=== PATIENT | female | born 1975 | race Caucasian/White ===

== ENCOUNTER 2018-08-21 14:33 | Emergency (ER) | payer OTHER ==
[~2018-08-21] VITALS: Ht 167.6 cm; Wt 49.9 kg
[2018-08-21] MEDS ORDERED: Motrin,Rufen800 MG PO (17:14)
[2018-08-21] MEDS ORDERED: CYCLOBENZAPRINE5 M3 PO (17:14)
== END 2018-08-21 17:28 | disposition home or self-care (01) ==
LOC: ED 14:33
DX: S02.2XXA Fracture of nasal bones, initial encounter for closed fracture (principal); R51 Headache; M54.2 Cervicalgia; V89.0XXA Person injured in unspecified motor-vehicle accident, nontraffic, initial encounter; Y93.89 Activity, other specified; Y92.481 Parking lot as the place of occurrence of the external cause; Y99.8 Other external cause status